=== PATIENT | male | born 1955 | race Hispanic/Latino ===

== ENCOUNTER → 2022-06-22 | Outpatient (CLI) | payer OTHER | END | disposition home or self-care (01) | LOC: SHCH 13:07 | PROVIDERS: ATTEND Internal Medicine Cardiovascular Disease | DX: I51.7 Cardiomegaly (principal); I87.2 Venous insufficiency (chronic) (peripheral); R06.09 Other forms of dyspnea; R07.9 Chest pain, unspecified; E78.5 Hyperlipidemia, unspecified; C78.5 Secondary malignant neoplasm of large intestine and rectum; C85.90 Non-Hodgkin lymphoma, unspecified, unspecified site | CPT/HCPCS: 93306; 93970 ==

== ENCOUNTER → 2023-03-17 | Outpatient (CLI) | payer OTHER | END | disposition home or self-care (01) | LOC: SHCH 09:33 | PROVIDERS: ATTEND Internal Medicine Cardiovascular Disease | DX: I87.2 Venous insufficiency (chronic) (peripheral) (principal) | CPT/HCPCS: 93970 ==

== ENCOUNTER 2023-07-28 06:02 | Day surgery (SDC) | payer OTHER ==
[2023-07-26 10:45] VITALS: BP 87/64; PULSE 62; RESP 17
[2023-07-26 11:05] LABS: BASOPHILS # (AUTO) 0.08 K/uL (0.00-0.20); BASOPHILS % (AUTO) 0.8 % (0.0-5.0); EOSINOPHILS # (AUTO) 0.14 K/uL (0.00-0.70); EOSINOPHILS % (AUTO) 1.4 % (0.0-8.0); HEMATOCRIT 38.1 % (42-54); IMMATURE GRANULOCYTE ABSOLUTE 0.18 K/uL (0-1); LYMPHOCYTES # (AUTO) 0.9 K/uL (1.0-4.8); LYMPHOCYTES % (AUTO) 8.6 % (21.0-51.0); MEAN CORPUSCULAR HEMOGLOBIN 31.5 pg (27.0-33.0); MEAN CORPUSCULAR HGB CONC 31.5 g/dL (32.0-36.0); MONOCYTES # (AUTO) 0.7 K/uL (0.1-1.0); MONOCYTES % (AUTO) 6.5 % (3.0-13.0); NEUTROPHILS # (AUTO) 8.3 K/uL (1.8-7.7); NEUTROPHILS % (AUTO) 80.9 % (40.0-77.0); PLATELET COUNT (AUTO) 297 K/uL (130-400); RED BLOOD CELL COUNT(AUTO) 3.81 MIL/uL (4.50-6.20); RED CELL DISTRIBUTION WIDTH 16.2 % (11.0-15.5); WHITE BLOOD COUNT (AUTO) 10.2 K/uL (4.8-10.8)
[2023-07-26 11:12] LABS: CREATININE 1.1 mg/dL (0.5-1.5); POTASSIUM 4.8 mmol/L (3.5-5.1)
[2023-07-26 11:18] LABS: INR 1.35 (0.85-1.15); PARTIAL THROMBOPLASTIN TIME 36.8 SEC (26.3-35.5); PROTHROMBIN TIME 14.4 SEC (9.6-11.6)
[2023-07-28] VITALS (13 sets, daily range): BP systolic 87–117; BP diastolic 55–73; PULSE 58–67; RESP 10–18
[~2023-07-28] VITALS: Ht 182.9 cm; Wt 85.5 kg
[~2023-07-28 06:02] MED LIST: ALFU10TA9 PO; ASPI-1197 PO; FAMO40TA7 PO; ONDA4TAB10 PO; PIND5 PO; RIVA20TA PO; ROSU20TA73 PO; SERT-439 PO
[2023-07-28] MEDS ORDERED: 0.9%NACL 1000ML 1,000 ML IV ONE ×2 (06:18→11:26)
[2023-07-28] MEDS ORDERED: HEPARIN 10,000 UNIT/10ML (1,000 UNIT/ML) VIAL ONE (07:13)
[2023-07-28] MEDS ORDERED: LIDOCAINE HCL 400MG/20ML VIAL ONE ×2 (07:13→08:25)
[2023-07-28] MEDS ORDERED: IODIXANOL 320 MG/ML 100 ML VIAL ONE ×2 (07:13→09:32)
[2023-07-28] MEDS ORDERED: FENTANYL CITRATE PF 50 MCG/1 ML 2ML VIAL ONE ×2 (07:20→07:45)
[2023-07-28] MEDS ORDERED: MIDAZOLAM HCL 1 MG/ML 2ML VIAL ONE ×4 (07:20→08:55)
[2023-07-28] MEDS ORDERED: PROTAMINE SULFATE 10 MG/ML 25ML VIAL IV ONE (10:02)
[2023-07-28] MEDS ORDERED: CLOPIDOGREL 300MG TAB ONE (10:16)
[2023-07-28] MEDS ORDERED: DEXTROSE 50%-WATER 50 ML DISP.SYRIN IV PRN (10:30)
[2023-07-28] MEDS ORDERED: GLUCAGON 1MG KIT 1 MG ML IM PRN (10:30)
[2023-07-28] MEDS ORDERED: ACETAMINOPHEN WITH CODEINE 1 TAB TAB PO PRN ×2 (10:30)
== END 2023-07-28 15:40 | disposition home or self-care (01) ==
LOC: DAH 06:02
PROVIDERS: ATTEND Internal Medicine Cardiovascular Disease
DX: I87.1 Compression of vein (principal); I87.2 Venous insufficiency (chronic) (peripheral); G90.9 Disorder of the autonomic nervous system, unspecified; S80.11XA Contusion of right lower leg, initial encounter; I48.0 Paroxysmal atrial fibrillation; I87.8 Other specified disorders of veins; E78.5 Hyperlipidemia, unspecified; K21.9 Gastro-esophageal reflux disease without esophagitis; E66.3 Overweight; I95.1 Orthostatic hypotension; Z79.899 Other long term (current) drug therapy; Z98.890 Other specified postprocedural states; Z79.01 Long term (current) use of anticoagulants; Z79.82 Long term (current) use of aspirin; Z68.26 Body mass index [BMI] 26.0-26.9, adult; X58.XXXA Exposure to other specified factors, initial encounter; Y93.89 Activity, other specified; Y92.89 Other specified places as the place of occurrence of the external cause; Y99.8 Other external cause status
CPT/HCPCS: 80048; 85025; 85610; 85730; 36415; 37187; 37238; 36012; 75822; 36005; 37252; 37253 ×5; 85347 ×4; 76882; C1876; C1769; C1894 ×4; C1753; C1757; J3010 ×2; J3490 ×2; J7030 ×2; J1644 ×3; J2250 ×4; Q9967 ×2; A4215; A4222; A4221; A4663; A4216; A4606; J2720; A4223 ×3; 99156; 99157

== ENCOUNTER → 2023-09-11 | Outpatient (CLI) | payer OTHER | END | disposition home or self-care (01) | LOC: SHCH 11:14 | PROVIDERS: ATTEND Internal Medicine Cardiovascular Disease | DX: I87.2 Venous insufficiency (chronic) (peripheral) (principal); I87.1 Compression of vein | CPT/HCPCS: 93970 ==

== ENCOUNTER → 2023-09-29 | Outpatient (CLI) | payer OTHER ==
[~2023-09-29] MED LIST changes: +IOHEXOL-350 75 ML VIAL IV ONE
== END | disposition home or self-care (01) ==
LOC: RAH 10:53
PROVIDERS: ATTEND Internal Medicine Cardiovascular Disease
DX: K76.0 Fatty (change of) liver, not elsewhere classified (principal); I26.99 Other pulmonary embolism without acute cor pulmonale
CPT/HCPCS: 71270; Q9967

== ENCOUNTER → 2023-10-28 | Outpatient (CLI) | payer OTHER ==
[~2023-10-28] MED LIST changes: -IOHEXOL-350 75 ML VIAL IV ONE
== END | disposition home or self-care (01) ==
LOC: SHCH 08:30
PROVIDERS: ATTEND Internal Medicine Cardiovascular Disease
DX: I11.9 Hypertensive heart disease without heart failure (principal); R06.09 Other forms of dyspnea
CPT/HCPCS: 93306

== ENCOUNTER → 2024-01-19 | Outpatient (CLI) | payer OTHER | END | disposition home or self-care (01) | LOC: RAH 12:24 | PROVIDERS: ATTEND Internal Medicine Gastroenterology | DX: R13.11 Dysphagia, oral phase (principal); R63.30 Feeding difficulties, unspecified | CPT/HCPCS: 74230; 92611 ==

== ENCOUNTER → 2024-06-24 | Outpatient (CLI) | payer OTHER ==
[~2024-06-24] MED LIST changes: +ALFU10TA46 PO; -ALFU10TA9 PO; +ONDA-243 PO; -ONDA4TAB10 PO
== END | disposition home or self-care (01) ==
LOC: SHCH 14:34
PROVIDERS: ATTEND Internal Medicine Cardiovascular Disease
DX: I87.2 Venous insufficiency (chronic) (peripheral) (principal); I87.1 Compression of vein
CPT/HCPCS: 93970

== ENCOUNTER → 2024-10-19 | Outpatient (CLI) | payer OTHER ==
[~2024-10-19] MED LIST changes: -ASPI-1197 PO; -FAMO40TA7 PO; +FERR-82 PO; +FURO20TA4 PO; +LACT10SO85 PO; +MIDO10TA3 PO; -ONDA-243 PO; +PANT40TA54 PO; -PIND5 PO; +RIFA550T PO; -ROSU20TA73 PO; +SERT-438 PO; -SERT-439 PO; +SPIR50TA5 PO
== END | disposition home or self-care (01) ==
LOC: SHCH 14:52
PROVIDERS: ATTEND Internal Medicine Cardiovascular Disease
DX: I87.2 Venous insufficiency (chronic) (peripheral) (principal); I82.409 Acute embolism and thrombosis of unspecified deep veins of unspecified lower extremity
CPT/HCPCS: 93970

== ENCOUNTER → 2024-11-22 | Outpatient (CLI) | payer OTHER ==
--- NOTE | 2024-11-24 07:56 | HMCSR ---
APPROVED REPORT EXAM: Two-dimensional and M-mode echocardiogram with Doppler and color Doppler. INDICATION ICD: R06.09 Other forms of dyspnea Atrial Fibrillation 2D Dimensions RVDd4.7 cmLVEF(%)60.6 (>50%)LVED Vol(simp.)161.0 mL IVSd0.8 (0.7-1.1cm)FS(%)33 %LVES Vol(simp.)69.0 mL LVDd5.1 (3.8-5.6cm)Ao Root(2D)3.9 (2.0-3.7cm)LVEF(%, simp.)57 % PWd1.1 (0.7-1.1cm)LVOT diam2.3 (1.8-2.4cm)LA ESV INDEX (BP)37.97 mL/m2 LVDs3.4 (2.5-4.0cm) Aortic Valve AoV Vmax1.3 m/Rafiq Peak GR6.6 mmHgLVOT Vmax1.0 m/s AoV VTI0.3 mAo Mean GR3.5 mmHgLVOT VTI0.24 m KAPIL (VMAX)3.4 cm2Al P1/2T433 msAVA (VTI) 3.4 cm2 Mitral Valve MV E Sqfg326.0 cm/sDECEL Vmqr372 ms MV A Vmax75.9 cm/sP 1/2 T53 ms E/A ratio1.3MVA (PHT)4.2 cm2 MR Max PG82 mmHg TDI E/E' Kdvlxw95.1E/E' Utijltr70.0 Pulmonary Valve PV Vmax1.3 m/sPV VTI0.29 mPV Mean GR3 mmHg PV Peak GR6.9 mmHgPI End Keli. [place] 1.2 cm/s Tricuspid Valve TR Vmax2.5 m/sRAP (EST) 3 vcVlPEZU44.2 mmHg TR Peak GR24.2 mmHg Left Ventricle The left ventricle structure and function is normal. There is normal LV segmental wall motion. There is borderline to mild concentric left ventricular hypertrophy. LVEF is 55-60%. Grade 1 diastolic dysf unction Right Ventricle The right ventricle is moderately to severely dilated. The right ventricular systolic function is nor mal. Atria The left atrium is mildly dilated. The right atrium size is normal. Aortic Valve Aortic valve is trileaflet. Aortic valve leaflets are sclerotic but open well. Trace aortic regurgita tion. There is no aortic valvular stenosis. Mitral Valve Mitral valve leaflets are mildly sclerotic but open well. Mitral regurgitation is trace to mild. Ther e is no mitral valve stenosis. Tricuspid Valve The tricuspid valve leaflets appear normal. There is trace tricuspid regurgitation. Pulmonic Valve The pulmonic valve leaflets are thin and pliable; valve motion is normal. There is trace to mild valv ular regurgitation. Great Vessels The aortic root is normal in size. The IVC is normal in size and collapses >50% with inspiration. Pericardium No pericardial effusion. Conclusion LVEF is 55-60%. Grade 1 diastolic dysfunction There is normal LV segmental wall motion. Mitral valve leaflets are mildly sclerotic but open well. Mitral regurgitation is trace to mild. No pericardial effusion. The aortic root is normal in size.
== END | disposition home or self-care (01) ==
LOC: SHCH 10:45
PROVIDERS: ATTEND Internal Medicine Cardiovascular Disease
DX: I08.8 Other rheumatic multiple valve diseases (principal); R06.09 Other forms of dyspnea; I48.0 Paroxysmal atrial fibrillation; I48.91 Unspecified atrial fibrillation
CPT/HCPCS: 93306

== ENCOUNTER → 2024-12-04 | Outpatient (CLI) | payer OTHER ==
--- NOTE | 2024-12-04 13:50 | HMCSR ---
APPROVED REPORT Right Lower Extremity Venous Study for DVT. Indications z09 S/P RGSV Vari on 12-01-24 Vein Imaging CFV (R): Normal flow, augmentation and compression. No evidence of DVT. 10.8mm 1008ms of reflux. SFJ (R): Normal flow, augmentation and compression. No evidence of DVT. FEM (R): Normal flow, augmentation and compression. No evidence of DVT. POP (R): Normal flow, augmentation and compression. No evidence of DVT. DFV (R): Normal flow, augmentation and compression. No evidence of DVT. PTV (R): Normal flow, augmentation and compression. No evidence of DVT. Peroneals (R): Normal flow, augmentation and compression. No evidence of DVT. Technologist Impression Deep veins of RLE appear patent and compressible without thrombus. RCFV reflux seen RGSV appear closed from Junction to Distal calf. Cluster of veins at knee appear closed. Conclusion Successful Varithena ablation to right greater saphenous vein No DVT Conclusion Successful Varithena ablation to right greater saphenous vein No DVT
== END | disposition home or self-care (01) ==
LOC: SHCH 09:09
PROVIDERS: ATTEND Internal Medicine Cardiovascular Disease
DX: Z09 Encounter for follow-up examination after completed treatment for conditions other than malignant neoplasm (principal); I87.2 Venous insufficiency (chronic) (peripheral); K21.9 Gastro-esophageal reflux disease without esophagitis
CPT/HCPCS: 93971